=== PATIENT | male | born 1950 | race Caucasian/White ===

== ENCOUNTER 2018-02-14 06:11 | Day surgery (SDC) | payer MEDICARE ==
[~2018-02-14] VITALS: Ht 177.8 cm; Wt 88.0 kg
[~2018-02-14 06:11] MED LIST: ASPI81EC PO; ERGO400 PO; LEVO750 PO; LISHYD2012 PO; LISI20 PO; OXYACE5T PO; SPIHYD PO
[2018-02-14] MEDS ORDERED: CLOP75 PO (06:58)
[2018-02-14] MEDS ORDERED: CARV6.25 PO (06:58)
[2018-02-14] MEDS ORDERED: ATOR40TA PO (07:20)
[2018-02-14] MEDS ORDERED: AMLO5 PO (07:21)
== END 2018-02-14 22:38 | disposition home or self-care (01) ==
LOC: MHTC 06:11
PROC: 0JH632Z Insertion of Monitoring Device into Chest Subcutaneous Tissue and Fascia, Percutaneous Approach (ICD-10-PCS; principal; 2018-02-14)
DX: I63.9 Cerebral infarction, unspecified (principal); I10 Essential (primary) hypertension; I65.23 Occlusion and stenosis of bilateral carotid arteries
CPT/HCPCS: 33282; C1764; J2250; J3010

== ENCOUNTER → 2022-05-15 | Outpatient (CLI) | payer MEDICARE ==
[~2022-05-15] MED LIST changes: +AMLO5 PO; +ATOR40TA PO; +CARV6.25 PO; +CEFD300 PO; +CLOP75 PO
[2022-05-15 11:47] LABS: BASOPHILS ABSOLUTE AUTO 0.05 K/mm3 (0.00-0.23); BASOPHILS PERCENT AUTO 0 % (0-2); EOSINOPHILS PERCENT AUTO 0 % (0-6); Hemoglobin 15.1 g/dL (13.5-17.5); IMMATURE GRAN ABSOLUTE AUTO 0.06 K/mm3 (0.00-0.10); IMMATURE GRAN PERCENT AUTO 1 % (0-1); LYMPHOCYTES PERCENT AUTO 13 % (21-46); MONOCYTES ABSOLUTE AUTO 0.97 K/mm3 (0.16-1.47); MONOCYTES PERCENT AUTO 8 % (4-13); Mean Corpuscular HGB 34.3 pg (26.0-34.0); Mean Corpuscular Volume 96 fL (80-100); Mean Platelet Volume 10.6 fL (9.1-12.4); NEUTROPHILS ABSOLUTE AUTO 9.31 K/mm3 (1.96-9.15); NEUTROPHILS PERCENT AUTO 78 % (41-73); Platelet Count 280 K/mm3 (150-400); RDW Coefficient Variation 13.2 % (11.7-14.2); RDW Standard Deviation 46.1 fL (35.1-46.3); White Blood Cell Count 11.99 K/mm3 (4.00-11.30)
[2022-05-15 11:56] LABS: Albumin/Globulin Ratio 1.1 (0.8-1.8); Bilirubin, Total 0.7 mg/dL (0.1-1.0); Bun/Creatinine Ratio 9.8 (12.0-20.0); Calcium, Blood 8.7 mg/dL (8.5-10.1); Creatinine, Blood 1.43 mg/dL (0.60-1.20); Globulin, Blood 3.7 g/dL (2.2-4.0); Potassium, Blood 3.4 mmol/L (3.5-5.5); Total Protein, Blood 7.7 g/dL (6.4-8.2)
== END | disposition home or self-care (01) ==
LOC: LAB SHORT 11:41 → LAB 11:41
PROVIDERS: Physician Assistant Surgical
DX: R11.2 Nausea with vomiting, unspecified (principal)
CPT/HCPCS: 80053; 83690; 85025

== ENCOUNTER 2022-12-19 12:18 | Emergency (ER) | payer MEDICARE ==
[~2022-12-19] VITALS: Ht 177.8 cm; Wt 88.5 kg
[2022-12-19 13:18] LABS: BASOPHILS ABSOLUTE AUTO 0.04 K/mm3 (0.00-0.23); BASOPHILS PERCENT AUTO 0 % (0-2); EOSINOPHILS ABSOLUTE AUTO 0.15 K/mm3 (0.00-0.68); EOSINOPHILS PERCENT AUTO 2 % (0-6); Hemoglobin 14.4 g/dL (13.5-17.5); IMMATURE GRAN ABSOLUTE AUTO 0.03 K/mm3 (0.00-0.10); IMMATURE GRAN PERCENT AUTO 0 % (0-1); LYMPHOCYTES ABSOLUTE AUTO 2.55 K/mm3 (0.84-5.20); LYMPHOCYTES PERCENT AUTO 28 % (21-46); MONOCYTES ABSOLUTE AUTO 1.05 K/mm3 (0.16-1.47); MONOCYTES PERCENT AUTO 12 % (4-13); Mean Corpuscular HGB 33.3 pg (26.0-34.0); Mean Corpuscular HGB Conc 35.1 g/dL (31.5-36.5); Mean Corpuscular Volume 95 fL (80-100); Mean Platelet Volume 9.9 fL (9.1-12.4); NEUTROPHILS ABSOLUTE AUTO 5.17 K/mm3 (1.96-9.15); NEUTROPHILS PERCENT AUTO 58 % (41-73); Platelet Count 300 K/mm3 (150-400); RDW Coefficient Variation 12.6 % (11.7-14.2); RDW Standard Deviation 43.8 fL (35.1-46.3); Red Blood Cell Count 4.33 M/mm3 (4.30-5.90); White Blood Cell Count 8.99 K/mm3 (4.00-11.30)
[2022-12-19 13:54] LABS: Albumin, Blood 3.6 g/dL (3.4-5.0); Bilirubin, Total 0.7 mg/dL (0.1-1.0); Bun/Creatinine Ratio 10.1 (12.0-20.0); Calcium, Blood 8.9 mg/dL (8.5-10.1); Creatinine, Blood 1.49 mg/dL (0.60-1.20); Globulin, Blood 3.5 g/dL (2.2-4.0); Potassium, Blood 3.5 mmol/L (3.5-5.5); Total Protein, Blood 7.1 g/dL (6.4-8.2)
[2022-12-19 14:46] LABS: Source, Urine Clean Catch
[2022-12-19 14:54] LABS: Appearance, Urine Hazy (Clear); Bilirubin, Urine Neg (Neg); Blood, Urine 5+ (Neg); Color, Urine Yellow (P-Yellow); Glucose Qualitative, Urine Neg (Neg); Ketones, Urine 2+ (Neg); Leukocyte Esterase, Urine Neg (Neg); Nitrite, Urine Neg (Neg); Protein, Urine 2+ (Neg); Urobilinogen, Urine NORM (Normal)
[2022-12-19 15:00] LABS: Bacteria Few /hpf; Calcium Oxalate Crystals Rare /hpf; Red Blood Cells, Urine 50-100 /hpf (0-2); Squamous Epithelial Cells Rare /hpf (Few); White Blood Cells, Urine 0-2 /hpf (0-5)
[2022-12-19] MEDS ORDERED: ONDA4ODT MM ×2 (15:33→15:44)
[2022-12-19] MEDS ORDERED: HYDR1TAB94 PO (15:33)
[2022-12-19] MEDS ORDERED: IBUP600 PO ×2 (15:33→15:44)
[2022-12-19] MEDS ORDERED: Norco 5-325 Ta1 EACH PO (15:44)
== END 2022-12-19 16:05 | disposition home or self-care (01) ==
LOC: ER 12:18
PROVIDERS: Physician Assistant
DX: N23 Unspecified renal colic (principal); I10 Essential (primary) hypertension; Z79.82 Long term (current) use of aspirin; Z79.899 Other long term (current) drug therapy; Z86.73 Personal history of transient ischemic attack (TIA), and cerebral infarction without residual deficits
CPT/HCPCS: 36415; 74177; 80053; 81001; 83690; 85025; 93005; 93010; 96361; 96374-59; 96375; 99284-25; J1885; J2405; J7030; Q9967

== ENCOUNTER 2023-08-10 07:53 | Day surgery (SDC) | payer MEDICARE ==
[~2023-08-10] VITALS: Ht 177.8 cm; Wt 91.2 kg
[2023-08-10] VITALS (14 sets, daily range): BP systolic 150–181; BP diastolic 85–102
[~2023-08-10 07:53] MED LIST changes: +HYDR1TAB94 PO; +IBUP600 PO; +Norco 5-325 Ta1 EACH PO; +ONDA4ODT MM
[2023-08-10] MEDS ORDERED: Flomax0.4 MG PO (09:18)
[2023-08-10] MEDS ORDERED: LATA.005SO BOTHEYES (09:19)
--- NOTE | 2023-08-10 10:08 | NUR ---
PATIENT IS S/P NIGEL AND RECOVERY IN PROGRESS. DR. PAULA SPOKE WITH THE . CONTINUE TO MONITOR THE PATIENT. HE IS RESPONDING TO VERBAL COMMANDS AND THEN FALLS BACK TO SLEEP. VVS. ORAL SUCTIONING PERFORMED AND BITE BLOCK REMOVED. NO BLEEDING NOTED. POM MASK STILL IN USE, SAT 99% ON 10lPM, WEEANING AAS TOLERATED.
--- NOTE | 2023-08-10 11:02 | NUR ---
1025 PATIENT TO THE BEDSIDE. PATIENT AWAKE AND TLKING WITH . PATIENT NOW ON ROOM AIR AND SATING 98%. VVS. DR. PAULA AT THE BEDSIDE AND SPOKE TO BOTH THE PATIENT AND . RESULT OF TEST GIVEN AND PATIENT WILL FOLLOW UP WITH DR. RUSHING, THEY WILL CALL AN [facility] AN APPOINTMENT FOR FOLLOW UP.
--- NOTE | 2023-08-10 11:04 | NUR ---
1035 PIV REMOVED, CATH TIP INTACT. PRESSURE DRESSING APPLIED. PATIENT UP AND DRESSED. REVIEWED DISCHARGE INSTRUCTIONS AND ALL QUESTIONS ANSWERED BY AND PATIENT. PATIENT TO THE RESTROOM AND THE TO A WHEELCHAIR.
--- NOTE | 2023-08-10 11:05 | NUR ---
1045 PATIENT DISCHARGED HOME VIS WHEELCHAIR WITH DESK MAKER WITH INSTRUCTIONS IN HAND.
== END 2023-08-11 22:48 | disposition home or self-care (01) ==
LOC: MHTC 07:53
DX: I08.1 Rheumatic disorders of both mitral and tricuspid valves (principal); I44.7 Left bundle-branch block, unspecified; I42.8 Other cardiomyopathies; E78.00 Pure hypercholesterolemia, unspecified; N18.9 Chronic kidney disease, unspecified; E78.5 Hyperlipidemia, unspecified; I12.9 Hypertensive chronic kidney disease with stage 1 through stage 4 chronic kidney disease, or unspecified chronic kidney disease
CPT/HCPCS: 93312; 93325; 99152; 99153; A9270; J2250; J3010; J7030